=== PATIENT | female | born 1955 ===

== ENCOUNTER 2023-12-25 12:24 | Emergency (ER) | payer MEDICARE, BC | END 2023-12-25 13:10 | disposition home or self-care (01) | LOC: CC.ED 12:24 | DX: S52.502A Unspecified fracture of the lower end of left radius, initial encounter for closed fracture (principal); W11.XXXA Fall on and from ladder, initial encounter; Y93.39 Activity, other involving climbing, rappelling and jumping off | CPT/HCPCS: 29125; 73110-LT; 99283-25; 99284 ==